=== PATIENT | female | born 1990 | race Caucasian/White ===

== ENCOUNTER 2016-12-30 04:02 | Emergency (ER) | payer SELFPAY ==
[2016-12-30 04:31] VITALS: RESP 14; O2SAT 99
[2016-12-30] MEDS ORDERED: Lidocaine 2% Inj (20ml) INFIL ONE (05:14)
--- NOTE | 2016-12-30 05:15 | C.PDOC ---
History Of Present Illness 26 YO female come in for evaluation of Right ankle laceration sustained [employer] " over metal frame of my bed" at home. Pt admits, able to ambulate without difficulty. Otherwise, pt denies weakness, deformity, sensory or vascular deficits to Right foot. Ambulate to ED for evaluation, not in any apparent distress. Time Seen by Provider: 12/30/16 05:13 Chief Complaint (Nursing): Abnormal Skin Integrity History Per: Patient Past Medical History Reviewed: Historical Data, Nursing Documentation, Vital Signs Vital Signs: Last Vital Signs Temp 98 F 12/30/16 04:28 Pulse 80 12/30/16 04:28 Resp 14 12/30/16 04:28 BP 130/80 12/30/16 04:28 Pulse Ox 99 12/30/16 05:15 - Medical History PMH: No Chronic Diseases Surgical History: No Surg Hx Family History: States: No Known Family Hx - Social History Hx Alcohol Use: No Hx Substance Use: No - Immunization History Hx Tetanus Toxoid Vaccination: Yes Hx Influenza Vaccination: No Hx Pneumococcal Vaccination: No Review Of Systems Except As Marked, All Systems Reviewed And Found Negative. Constitutional: Negative for: Fever, Chills Musculoskeletal: Positive for: Foot Pain Skin: Positive for: Lesions Neurological: Negative for: Weakness, Numbness Physical Exam - Physical Exam Appears: Well, Non-toxic, No Acute Distress Skin: Normal Color, Warm, Other (Right ankle: 3cm cutaneous, linear laceration over posterior aspect ankle, just medially to Achilles tendon. NO wound FB, no tendon or ligament injury noted. NO edema, no skin contusin, no wound discharges.) Extremity: Normal ROM (Right ankle), No Calf Tenderness, Capillary Refill (less than 2sec to Right foot), No Deformity, No Swelling Neurological/Psych: Oriented x3, Normal Speech, Normal Motor, Normal Sensation, Normal Reflexes ED Course And Treatment O2 Sat by Pulse Oximetry: 99 Pulse Ox Interpretation: Normal Progress Note: On re-eval, pt is afebrile, hemodynamicaly stable. non-toxic. Ambulatory in ED with stable gait. Right ankle: laceration closed with sutures# 5, FAROM, no neurovascular deficits. Rob sign (-). Pt advised on wound care. ref. to f/u with PMD in 2 days for wound check. return if any sign of infection. Stable for discharge now. Laceration - Laceration Repair RIght ankle Wound Length (In cm): 3cm Description Of Wound: Linear (cutaneous) Wound Cleansed With: Betadine, Sterile Saline Anesthesia: Lidocaine 2% Wound Examination: Irrigated With Saline, No FB With Wound Exploration, No Tendon Injury With Wound Exploration Wound Closure: Suture (#5) Suture Technique And Material Used: Interrupted, Nylon (4-0) Wound Complexity: Simple Disposition Counseled Patient/Family Regarding: Diagnosis, Need For Followup - Disposition Referrals: [facility] [Outside] Disposition: HOME/ ROUTINE Disposition Time: 05:30 Condition: STABLE Additional Instructions: KEEP WOUND CLEAN, DRY APPLY ANTIBIOTIC OINTMENT TO WOUND DAILY SUTURE REMOVAL IN 10-14 DAYS RETURN TO ED AT ANY TIME IF ANY SIGN OF INFECTION- INCREASE PAIN OVER WOUND, REDNESS, WOUND DISCHARGES OR FEVER. Instructions: Laceration (ED) Forms: [employer] (Japanese) - Clinical Impression Clinical Impression: Laceration - injury
[2016-12-30] MEDS ORDERED: Lidocaine 2% Inj (20ml) ONE (05:33)
[2016-12-30 06:33] VITALS: BP 118/78; PULSE 78; TEMP 97.8
== END 2016-12-30 06:33 | disposition home or self-care (01) ==
LOC: C.ER 04:02
DX: S91.011A Laceration without foreign body, right ankle, initial encounter (principal); W45.8XXA Other foreign body or object entering through skin, initial encounter; Y92.009 Unspecified place in unspecified non-institutional (private) residence as the place of occurrence of the external cause; Z23 Encounter for immunization